=== PATIENT | male | born 1995 | race Caucasian/White ===

== ENCOUNTER 2020-01-21 19:59 | Emergency (ER) | payer OTHER ==
[~2020-01-21] VITALS: Ht 193 cm; Wt 104.3 kg
[2020-01-21 21:27] LABS: CARBON DIOXIDE 28.6 mmol/L (21-32); CHLORIDE SERUM 107 mmol/L (98-107); CREATININE SERUM 1.1 mg/dL (0.7-1.3); GFR1 > 60 mL/min; GLUCOSE SERUM 89 mg/dL (74-106); POTASSIUM SERUM 4.2 mmol/L (3.5-5.1); SODIUM SERUM 143 mmol/L (136-145)
[2020-01-21 21:29] LABS: BASOPHIL % 0.4 % (0-2); PLATELET COUNT 242 x10^3mcL (130-400)
[2020-01-21 21:32] LABS: RED CELL DISTRIBUTION WIDTH 16.5 % (11.5-14.5)
[2020-01-21 21:40] LABS: ALBUMIN 4.1 g/dL (3.4-5.0); ALKALINE PHOSPHATASE 62 U/L (46-116); ALT/SGPT 39 U/L (16-63); AST/SGOT 19 U/L (15-37); BILIRUBIN TOTAL 1.65 mg/dL (0.20-1.00); LIPASE 68 IU/L (73-393)
[2020-01-21 21:43] LABS: rbc morphology (normal/abnorm) ABNORMAL (NORMAL)
[2020-01-21 23:17] VITALS: BP 108/71
== END 2020-01-21 23:17 | disposition home or self-care (01) ==
LOC: ED 19:59
PROVIDERS: Emergency Medicine
DX: R10.12 Left upper quadrant pain (principal); Z98.84 Bariatric surgery status; Y04.8XXA Assault by other bodily force, initial encounter; Y93.89 Activity, other specified; Y92.89 Other specified places as the place of occurrence of the external cause; Y99.8 Other external cause status
CPT/HCPCS: J2270; J2405; J7030

== ENCOUNTER 2020-02-26 20:48 | Emergency (ER) | payer OTHER ==
[~2020-02-26] VITALS: Ht 193 cm; Wt 101.6 kg
[2020-02-26 20:57] VITALS: Ht 193 cm; Wt 101.6 kg
[2020-02-26 22:04] VITALS: BP 129/65
== END 2020-02-26 22:04 | disposition home or self-care (01) ==
LOC: ED 20:48
DX: S29.011A Strain of muscle and tendon of front wall of thorax, initial encounter (principal); X58.XXXA Exposure to other specified factors, initial encounter; Y93.89 Activity, other specified; Y92.89 Other specified places as the place of occurrence of the external cause; Y99.8 Other external cause status